=== PATIENT | female | born 1960 | race Caucasian/White ===

== ENCOUNTER 2019-05-25 16:39 | Outpatient (CLI) | payer BC, SELFPAY ==
--- NOTE | ~2019-05-25 | CT_ITS ---
EXAMINATION: CT lung screening DATE: 05/25/2019 17:07 INDICATION: PERS HX OF TOBACCO DEP TECHNIQUE: Computed tomography (CT) of the chest was performed without intravenous contrast utilizing a low-dose lung cancer screening protocol. Additional 3D reconstructions utilizing coronal maximum i ntensity projection (MIP) were performed. Automated exposure control and iterative reconstruction freddy hnique were employed. The dose-length product was 64.88 mGy-cm. COMPARISON: None FINDINGS: Mild to moderate emphysema. Mild linear discoid atelectasis/scarring in the bilateral lower lobes. 2- 3 mm nodule at the anterobasilar right lower lobe. No pneumonia, pulmonary edema or pleural effusion. Heart size is normal. No pericardial effusion. Thoracic aorta is normal in caliber. No pathologicall y enlarged thoracic lymphadenopathy. Bilateral breast implants./Upper abdomen is unremarkable. Mild t horacic spondylosis. IMPRESSION: 1. Lung-RADS category 2: Benign appearance or behavior. Continue annual screening with noncontrast lo w-dose chest CT in 12 months. 2. Mild to moderate emphysema. Reviewed, dictated and finalized at location A. N INSPECTOR IMPRESSION: 1. Lung-RADS category 2: Benign appearance or behavior. Continue annual screeni ng with noncontrast low-dose chest CT in 12 months. 2. Mild to moderate emphysema.
== END 2019-05-25 16:40 | disposition home or self-care (01) ==
LOC: ANHIMG 16:50
PROVIDERS: PCP Emergency Medicine; Visit Provider Emergency Medicine
DX: Z12.2 Encounter for screening for malignant neoplasm of respiratory organs (principal); Z87.891 Personal history of nicotine dependence; J43.9 Emphysema, unspecified
CPT/HCPCS: G0297

== ENCOUNTER → 2020-04-10 07:25 | Outpatient (CLI) | payer BC, SELFPAY ==
--- NOTE | ~2020-04-10 | MM_ITS ---
EXAMINATION: MM scrn ivon implant BI w brenden HISTORY: Screening mammogram TECHNIQUE: Craniocaudal and mediolateral oblique 3-D tomosynthesis images with implant displacement a nd synthetic 2-D images were generated. Craniocaudal and mediolateral oblique views of the breasts wi thout implant displacement were obtained using full field digital mammography. CAD analysis was submi tted and interpreted. COMPARISON: Comparison to multiple prior studies sequentially, with oldest reviewed study dated 11/09. BREAST PARENCHYMAL COMPOSITION: There are scattered areas of fibroglandular density. FINDINGS: There are bilateral subpectoral silicone implants. There is no evidence of suspicious mass, calcification, or architectural distortion to suggest malignancy in either breast. There has been no suspicious interval change. IMPRESSION: 1. No mammographic evidence of malignancy. 2. Recommend routine screening mammography in one year. BI-RADS Category 1: Negative Reviewed, dictated and finalized at location A. RINTENDENT QUARRY
== END ==
PROVIDERS: PCP Emergency Medicine; Visit Provider Obstetrics & Gynecology
DX: Z12.31 Encounter for screening mammogram for malignant neoplasm of breast (principal)
CPT/HCPCS: 77063; 77067

== ENCOUNTER 2020-07-16 11:12 | Outpatient (CLI) | payer BC, SELFPAY ==
--- NOTE | ~2020-07-16 | CT_ITS ---
EXAMINATION: CT lung screening DATE: 07/16/2020 11:41 INDICATION: PER Hx TOBACCO DEPENDENCE TECHNIQUE: Computed tomography (CT) of the chest was performed without intravenous contrast. Addition al 3D reconstructions utilizing coronal maximum intensity projection (MIP) were performed. Automated exposure control and iterative reconstruction technique were employed. The dose-length product was 62 .65 mGy-cm. COMPARISON: 05/25/2019 FINDINGS: Mild to moderate emphysema. Mild dependent and basilar atelectasis in the bilateral lower lobes. Agai n seen is a 2 mm nodules in the anterobasilar segment of the right lower lobe. No new or enlarging pu lmonary nodules identified. No pneumonia, pulmonary edema or pleural effusion. Heart size is normal. No pericardial effusion. Thoracic aorta is normal in caliber. No pathologically enlarged thoracic lym phadenopathy. Bilateral breast implants. Visualized upper abdomen is unremarkable. Mild thoracic spon dylosis. IMPRESSION: 1. Lung-RADS category 2: Benign appearance or behavior. Continue annual screening with noncontrast lo w-dose chest CT in 12 months. 2. Mild to moderate emphysema. Reviewed, dictated and finalized at location A. IMPRESSION: 1. Lung-RADS category 2: Benign appearance or behavior. Continue annual screeni ng with noncontrast low-dose chest CT in 12 months. 2. Mild to moderate emphysema.
== END 2020-07-16 11:13 | disposition home or self-care (01) ==
PROVIDERS: PCP Emergency Medicine; Visit Provider Emergency Medicine
DX: Z12.2 Encounter for screening for malignant neoplasm of respiratory organs (principal); Z87.891 Personal history of nicotine dependence
CPT/HCPCS: 71271

== ENCOUNTER → 2021-03-10 08:53 | Outpatient (CLI) | payer BC, SELFPAY ==
--- NOTE | ~2021-03-10 | MMUS_ITS ---
EXAMINATION: MM diag ivon implant BI w brenden, US breast RT limited HISTORY: Pain in the upper outer quadrant of the right breast TECHNIQUE: Craniocaudal, mediolateral, and mediolateral oblique 3-D tomosynthesis images with implant displacement of the breasts were performed and synthetic 2-D images were generated. Craniocaudal, m ediolateral oblique, and mediolateral views of the breasts without implant displacement were obtained using full field digital mammography. CAD analysis was submitted and interpreted. High resolution li Lovelogicad right breast ultrasound was performed. COMPARISON: 04/10/2020, 02/06/2019, 11/09/2017 BREAST PARENCHYMAL COMPOSITION: There are scattered areas of fibroglandular density. FINDINGS: MAMMOGRAPHIC FINDINGS: There is no evidence of suspicious mass, calcification, or architectural distortion in either breast to suggest malignancy. There has been no suspicious interval change. No mammographic correlate is id entified for the reported right breast pain. ULTRASOUND: There is no evidence of focal abnormal solid or cystic lesion in the vicinity of the patient's right breast pain. IMPRESSION: 1. No specific mammographic or sonographic correlate is identified for the patient's right breast jose manuel n Further evaluation at this time should be based on clinical assessment. Continued follow-up physica l examination is recommended. 2. Recommend routine screening mammography in one year. BI-RADS Category 1: Negative Reviewed, dictated and finalized at location A. AT INFORMATION CENTER OFFICER IMPRESSION: 1. No specific mammographic or sonographic correlate is identified for the celine ent's right breast pain Further evaluation at this time should be based on clin ical assessment. Continued follow-up physical examination is recommended. 2. Recommend routine screening mammography in one year. BI-RADS Category 1: Negative
== END ==
PROVIDERS: Visit Provider Obstetrics & Gynecology
DX: N64.4 Mastodynia (principal)
CPT/HCPCS: 76642; 77062; 77066; G0279

== ENCOUNTER 2023-02-26 08:12 | Emergency (ER) | payer BC, SELFPAY ==
[2023-02-26 08:28] VITALS: BP 94/51; PULSE 63; RESP 16; TEMP 37.4; O2SAT 97
--- NOTE | 2023-02-26 08:45 | ED.URI ---
HPI - URI/Sore Throat General Chief Complaint: Upper Respiratory Infection Stated Complaint: Cold symptoms Time Seen by Provider: 02/26/23 08:30 Source: patient, RN notes reviewed and old records reviewed Mode of arrival: ambulatory Limitations: no limitations History of Present Illness HPI Narrative: 62-year-old female who presents to [facility] with complaints of sore throat and left ear pain since with some dry cough noted. Patient has not taken any OTC medications for her symptoms. Patient reports that her ear pain kept her up most of the night. Patient reports no fevers, chills or sweats, states does feel achy. MD elicited complaint: cough, sore throat, rhinorrhea and other ( left ear pain) Onset (ago): day(s) (2) Pain scale (0-10): 5 Able to tolerate fluids by mouth: Yes Treatments prior to arrival: none Related Data Allergies Allergy/AdvReac Type Severity Reaction Status Date / Time No Known Allergies Allergy Unverified 02/26/23 08:26 Review of Systems Review of Systems: CONSTITUTIONAL: Denies malaise, chills, sweats, or fever. EYES: Denies visual changes, redness, or discharge. ENT: Reports rhinorrhea, congestion, sinus pain, otalgia and sore throat. CARDIOVASCULAR: Denies chest pain, palpitations, or edema. RESPIRATORY: Reports cough.? Denies dyspnea. GASTROINTESTINAL: Denies abdominal pain, nausea, vomiting, diarrhea SKIN: Denies rash or itching. MUSCULOSKELETAL: reports some myalgia. NEUROLOGIC: Denies headache. All systems reviewed & are unremarkable except as noted in HPI and below PMFSH Past Medical History Medical History (Updated 02/28/23 @ 09:57 by Kiki Cueva NP) HLD (hyperlipidemia) RLS (restless legs syndrome) Vitamin D deficiency disease Surgical History Surgical History (Updated 02/28/23 @ 09:54 by Kiki Cueva NP) H/O brain surgery Chanda malformation H/O breast augmentation History of tonsillectomy Previous section x2 S/P foot surgery, right Family History Family History Mother Patient's mother is in good health Social History Social History (Updated 02/28/23 @ 09:53 by Kiki Cueva NP) Smoking status: Former smoker Alcohol intake: current Alcohol use details: rare Substance use type: does not use Living arrangements: with family Gender identity (if verbalized by the patient): Female Comments At time of signature, agree with nursing past medical, surgical, social and family history. There is no relevant family history pertinent to the presenting complaint Exam Narrative: GENERAL: Well-appearing, well-nourished, and in no acute distress. HEAD: Normocephalic EYES: PERRLA, conjunctivae clear ENT: Nares clear, turbinates edematous and erythematous, clear discharge. Mucous membranes moist. TM pearly tolliver with dull light reflex bilaterally; no tragal tenderness. Oropharynx erythematous without lesions. Tonsils not present and without exudate, no drooling, no hoarseness, no trismus, uvula midline.some post nasal drainage NECK: Supple. No lymphadenopathy CHEST: Clear to auscultation, breath sounds equal. No wheezing, rhonchi, rales, or stridor. No respiratory distress, speaks in full sentences.cough,SAO2 97%on room air HEART: Regular rate and rhythm. No murmur heard. SKIN: Warm, dry, no rash. NEURO: Alert and oriented x3. PSYCH: Normal mood and affect Course Course Emergency Course: Patient is aware of diagnosis, understands and agrees to treatment plan.? Anticipatory guidance given.? Patient agrees to follow-up as directed and is aware of reasons to seek care at the emergency department. Portions of this record may have been created with voice recognition software Level of Care: Express Care Visit Vital Signs Vital signs: Vital Signs Temperature 37.4 C 02/26/23 08:28 Pulse Rate 63 02/26/23 08:28 Respiratory Rate
== END 2023-02-26 09:00 | disposition home or self-care (01) ==
PROVIDERS: Emergency Provider Registered Nurse; PCP Emergency Medicine
DX: J06.9 Acute upper respiratory infection, unspecified (principal); Z20.822 Contact with and (suspected) exposure to COVID-19; Z87.891 Personal history of nicotine dependence; E78.5 Hyperlipidemia, unspecified; G25.81 Restless legs syndrome
CPT/HCPCS: 87081; 87426; 87804; 87880; 99213; C9803; G0463

== ENCOUNTER 2023-11-02 08:18 | Outpatient (CLI) | payer BC, SELFPAY ==
--- NOTE | ~2023-11-02 | CT_ITS ---
EXAMINATION:CT lung screening DATE: 11/02/2023 08:36 INDICATION: Personal history of nicotine dependence. Smoker who quit 2 years ago with 38 pack year hi story. TECHNIQUE: Computed tomography (CT) of the chest was performed without intravenous contrast. Automate d exposure control and iterative reconstruction technique were employed. The dose-length product (DLP ) was 84.78 mGy-cm. COMPARISON: Chest CT 07/16/2020 FINDINGS: There is moderate emphysema. There is mild atelectasis bilaterally. No pleural effusion. Th e heart size is normal. No pericardial effusion. There are bilateral breast implants. There is mild t horacic spondylosis. IMPRESSION: 1. Lung-RADS category 1: Negative. Continue annual screening with noncontrast low-dose chest CT in 12 months. Reviewed, dictated and finalized at location A. IMPRESSION: 1. Lung-RADS category 1: Negative. Continue annual screening with noncontrast l ow-dose chest CT in 12 months.
== END 2023-11-02 08:19 ==
LOC: GOSHIMG 08:19
PROVIDERS: PCP Emergency Medicine; Visit Provider Emergency Medicine
DX: Z12.2 Encounter for screening for malignant neoplasm of respiratory organs (principal); Z87.891 Personal history of nicotine dependence
CPT/HCPCS: 71271

== ENCOUNTER 2024-04-27 09:32 | Outpatient (CLI) | payer BC, SELFPAY ==
--- OUTSIDE RECORDS SUMMARY | 2024-04-27 09:49 | XMS_ITS | CONTINUITY OF CARE DOCUMENT ---
Author Name telly varner Address Unknown Organization [facility] Address [address] [place] [address] Phone [phone] Care Team Providers Care Furniture Stainer Name Role Phone Kelechi Hylton MD Unavailable KELECHI HYLTON MD Unavailable PROBLEMS Condition Status Date Provider Notes BACK PAIN, ACUTE active Kelechi Hylton MD ENCOUNTERS Date Type Provider Location Encounter Diagnosis - In-person encounter Office Visit Kelechi Hylton MD [facility] BACK PAIN, ACUTE VITAL SIGNS Date Observation Value Provider Body Mass Index (Ratio) 35.52 kg/m2 Joey Gonzalez blood pressure, diastolic 74 mm[Hg] Francois blood pressure, systolic 136 mm[Hg] Deep Gonzalez pulse rate 80 /min Raquel Gonzalez oxygen saturation, oximetry 96 % Raquel Gonzalez respiratory rate E&M 16 /min Raquel Gonzalez weight E&M 126 [lb_av] Kelechi Hylton MD height E&M 67 [in_i] Raquel Gonzalez ALLERGIES No Known Drug Allergies RESULTS Date Observation Value Provider Reference Range Interpretation Location 1 thyroid stimulating hormone, serum 1.33 u[IU]/mL Akbar Edmond HISTORY OF MEDICATION USE No Known Medication SOCIAL HISTORY Date Observation Value Provider social history E&M Marital Status: Marbrigido d Kelechi Benitezum MD smoking/tobacco cess ation, patient education and counseling yes Kelechi Hylton MD social history reviewed E&M reviewed Kelechi Hylton MD alcohol counseling no Raquel mata In the past 3 months , have you been waking up wanting to use drugs? (CAGE substance use question #4) Justin Gonzalez In the past 3 months , have you felt guilty or bad about using drugs? (CAGE substance use question #3) Justin Gonzalez In the past 3 months , has anyone annoyed you by telling you to cut down or stop using drugs? (CAGE substance use question #2) Justin Gonzalez In the past 3 months , have you felt you should cut down or stop using drugs?(CAGE substance use question #1) Justin Gonzalez alcohol use, average drinks per day <1 Raquel Gonzalez alcohol use, type beer Raquel laureano drug use no Raquel Gonzalez passive cigarette smoke exposure yes Raquel Gonzalez smoking history, total pack/day 1 Raquel Gonzalez smoking history, total pack/year 32 Raquel Gonzalez cigarette use yes Raquel medrano smoking, date started 1982 Javier Gonzalez smoking status current some day smoker De isiah Gonzalez MENTAL STATUS Date Observation Value Provider assessment of judgme nt and insight E&M Alert and oriented to time, place and person. Mood and affect are normal. Kelechi Hylton MD INSURANCE PROVIDERS Payer name Policy type / Coverage type Milady varma democrat ID [id number] PPO [employer] Other [id number] HISTORY OF PROCEDURES Procedure Date Procedure Name Provider Procedure Notes S tatus EKG Kelechi Hylton MD completed
[2024-04-27 13:51] LABS: Alanine Aminotransferase 15 U/L (6-35); Albumin Level 4.5 g/dL (3.5-5.1); Alkaline Phosphatase 57 U/L (38-126); Anion Gap 7 mmol/L (4-12); Aspartate Amino Transferase 32 U/L (14-36); Bilirubin,Total 0.6 mg/dL (0.2-1.3); Blood Urea Nitrogen 13 mg/dL (7-17); Calcium 9.8 mg/dL (8.4-10.2); Carbon Dioxide 29 mmol/L (22-30); Chloride 106 mmol/L (98-107); Cholesterol 232 mg/dL (0-200); Estimated Glomerular Filt Rate > 60; Glucose 89 mg/dL (65-110); HDL Direct 73 mg/dL; Potassium 4.5 mmol/L (3.4-5.0); Sodium 142 mmol/L (137-145); Triglycerides 105 mg/dL (<150)
[2024-04-27 14:04] LABS: LDL Cholesterol Direct 135 mg/dL
== END 2024-04-27 09:33 | disposition home or self-care (01) ==
LOC: ANHGOSHLAB 09:33
PROVIDERS: PCP Emergency Medicine; Visit Provider Emergency Medicine
DX: E78.5 Hyperlipidemia, unspecified (principal); E55.9 Vitamin D deficiency, unspecified
CPT/HCPCS: 36415; 80053; 80061; 82306

== ENCOUNTER 2024-05-10 07:05 | Outpatient (CLI) | payer BC, SELFPAY ==
--- NOTE | ~2024-05-10 | MM_ITS ---
EXAMINATION: MM scrn ivon implant BI w brenden HISTORY: Screening mammogram TECHNIQUE: Craniocaudal and mediolateral oblique 3-D tomosynthesis images with implant displacement a nd synthetic 2-D images were generated. Craniocaudal and mediolateral oblique views of the breasts wi thout implant displacement were obtained using full field digital mammography. CAD analysis was submi tted and interpreted. COMPARISON: 11/09/2017 BREAST PARENCHYMAL COMPOSITION: Not dense: There are scattered areas of fibroglandular density. FINDINGS: There is no evidence of suspicious mass, calcification, or architectural distortion to sugg est malignancy in either breast. There has been no suspicious interval change. IMPRESSION: 1. No mammographic evidence of malignancy. 2. Recommend routine screening mammography in one year. BI-RADS Category 1: Negative Reviewed, dictated and finalized at location B. ING HOME DIRECTOR
== END 2024-05-10 07:06 | disposition home or self-care (01) ==
LOC: MICIMG 07:06
PROVIDERS: PCP Emergency Medicine; Visit Provider Emergency Medicine
DX: Z12.31 Encounter for screening mammogram for malignant neoplasm of breast (principal)
CPT/HCPCS: 77063; 77067

== ENCOUNTER 2025-01-03 01:31 | Day surgery (SDC) | payer BC, SELFPAY ==
[2024-12-20 14:05] VITALS: BMI 16.9
[2025-01-03 11:50] VITALS: BP 113/58; PULSE 75; RESP 20; TEMP 36.3; O2SAT 98
[2025-01-03] MEDS: LACTATED RINGERS 1,000 ML 150 ML IV CONT (12:03)
--- NOTE | 2025-01-03 12:03 | WPDANESEPPF ---
Anes - Initial Pre Proc Eval Procedure: Operation Date: 01/03/25 13:00 Proposed Procedures p Screening Colonoscopy - Joe Kohli MD Date/Time: 01/03/25 12:03 Surgeon: Joe Kohli MD Pre Op Diagnosis: screening Patient Data Age: 64 Gender: F Height: 1.71 m Weight: 50.7 kg Last Vital Signs Temp 36.3 C L 01/03/25 11:50 Pulse 75 01/03/25 11:50 Resp 20 01/03/25 11:50 BP 113/58 L 01/03/25 11:50 Pulse Ox 98 01/03/25 11:50 O2 Del Method Room Air 01/03/25 11:50 Allergies Allergy/AdvReac Type Severity Reaction Status Date / Time No Known Allergies Allergy Verified 01/03/25 11:49 Home Medications ?Medication ?Instructions ?Recorded ?Confirmed ?Type gabapentin 300 mg capsule See Rx Instructions .Route 05/02/24 01/03/25 Rx .COMPLEX #270 caps temazepam 15 mg capsule 15 mg PO QHS PRN sleep #90 caps 05/03/24 12/20/24 Rx cholecalciferol (vitamin D3) 50 50 mcg PO DAILY #90 caps 05/09/24 01/03/25 Rx mcg (2,000 unit) capsule Patient hx anesthesia problems: none Family hx anesthesia problems: none Results Review: All pre-operative results and documents have been reviewed as part of the pre-operative evaluation. [facility] Past Medical History Medical History HLD (hyperlipidemia) Chronic cough Fatigue Tobacco abuse Chronic cough Recurrent maxillary sinusitis Papanicolaou smear for cervical cancer screening Hyperinflation of lungs Changes in vision Bronchitis due to tobacco use Vitamin D deficiency disease RLS (restless legs syndrome) HLD (hyperlipidemia) Surgical History Surgical History S/P foot surgery, right H/O breast augmentation Previous section x2 History of tonsillectomy H/O brain surgery Chanda malformation Family History Family History Mother Patient's mother is in good health Social History Social History (Updated 05/09/24 @ 09:10 by Ada Aragon MA) Years smoked: 30 Smoking status: Former smoker Tobacco type: cigarettes Alcohol intake: current Alcohol use details: rare Substance use: never Substance use type: does not use Do You Feel Safe in your Home?: Yes Lack of Transportation: No Lack of Food: Never True Current Housing: I Have Housing Concerned About Future Housing: No Difficulty Paying Gas/Electric Bills: No Difficulty Paying for Meds: No Currently Unemployed: No Education: High School Diploma/GED Difficulty w/ Childcare or Family Care: No Living arrangements: with family Gender identity (if verbalized by the patient): Female Spiritual care concerns: No Anes - Eval Final PreProcedure Day of Procedure 01/03/25 12:03 Patient weight: normal Heart: regular rate and rhythm Lungs: clear to auscultation and normal air movement Airway: Mallampati scale class II Neurological: alert and oriented Last oral intake: >/= 8 hours ASA classification: II Emergent: no Anesthetic plan: proceed Anesthesia type and monitoring: general GIVS and standard monitoring Results Review: All pre-operative results and documents have been reviewed as part of the pre-operative evaluation. Informed Consent: The patient's anesthetic plan and its attendant risks and benefits were discussed with the patient/family/POA. Questions were solicited and answers provided to the satisfaction of the patient/family/POA.
[2025-01-03] MEDS: SIMETHICONE ORAL SUSPENSION 20 MG/0.3 ML 30 ML BOTTLE 0.6 ML IRRIGATION (12:44)
--- NOTE | 2025-01-03 12:54 | S_PTH ---
PATIENT: Julisa Gentile LOC: [facility] U#:[id number] AGE/SX: 64/F ROOM: RE01/03/[address]: Joe Kohli MD : 1960 BED: DIS: 01/03/2025 SPEC #: [id number] RECD: 01/03/25 13:39 STATUS: KATIE REQ #: [id number] DARIAN: 01/03/25 12:[address]: Joe Kohli DEPT: [facility] RECD BY: Libertad Garland ENTERED: 01/03/25 13:39 SP TYPE: Surgical OTHR DR: Omid Hollins MD Tissues: A - Colon Polypectomy Procedures: Hematoxylin and Eosin Stain Gross and Microscopic Level 4
--- NOTE | 2025-01-03 12:57 | P.HP_ITS ---
H&P: HPI History of Present Illness Date/Time: 01/03/25 12:57 Chief Complaint: Screening colonoscopy Narrative: This is the patient's second colonoscopy. There are no GI symptoms and there is no family history of colorectal cancer. Review of Systems Review of Systems: All systems reviewed & are unremarkable except as noted in HPI and below PMFSH Past Medical History Medical History HLD (hyperlipidemia) Chronic cough Fatigue Tobacco abuse Chronic cough Recurrent maxillary sinusitis Papanicolaou smear for cervical cancer screening Hyperinflation of lungs Changes in vision Bronchitis due to tobacco use Vitamin D deficiency disease RLS (restless legs syndrome) HLD (hyperlipidemia) Surgical History Surgical History S/P foot surgery, right H/O breast augmentation Previous section x2 History of tonsillectomy H/O brain surgery Chanda malformation Family History Family History Mother Patient's mother is in good health Social History Social History (Updated 05/09/24 @ 09:10 by Ada Aragon MA) Years smoked: 30 Smoking status: Former smoker Tobacco type: cigarettes Alcohol intake: current Alcohol use details: rare Substance use: never Substance use type: does not use Do You Feel Safe in your Home?: Yes Lack of Transportation: No Lack of Food: Never True Current Housing: I Have Housing Concerned About Future Housing: No Difficulty Paying Gas/Electric Bills: No Difficulty Paying for Meds: No Currently Unemployed: No Education: High School Diploma/GED Difficulty w/ Childcare or Family Care: No Living arrangements: with family Gender identity (if verbalized by the patient): Female Spiritual care concerns: No Meds Home Medications and Allergies Home Medications ?Medication ?Instructions ?Recorded ?Confirmed ?Type gabapentin 300 mg capsule See Rx Instructions .Route 0 05/02/24 01/03/25 Rx .COMPLEX #270 caps temazepam 15 mg capsule 15 mg PO QHS PRN sleep #90 c aps 05/03/24 12/20/24 Rx cholecalciferol (vitamin D3) 50 50 mcg PO DAILY #90 ca ps 05/09/24 01/03/25 Rx mcg (2,000 unit) capsule Allergies Allergy/AdvReac Type Severity Reaction Status Date / Time No Known Allergies Allergy Verified 01/03/25 11:49 Vital Signs Vital Signs - 24 hr 01/03/25 11:50 Temperature 97.4 F L Pulse Rate 75 Respiratory Rate 20 Blood Pressure 113/58 L Pulse Oximetry 98 Oxygen Delivery Room Air Exam Const: General: cooperative and healthy appearing Resp: Effort & Inspection: normal respiratory effort and able to speak in complete sentences Auscultation: clear to auscultation bilaterally Cardio: Rate: regular rate Rhythm: regular rhythm GI: Inspection: normal to inspection GI Palp: No No hepatosplenomegaly present Auscultation: normal bowel sounds Rectal Exam: deferred Skin: General skin exam: normal color Psych: Appearance: grossly normal Mental Status: mental status grossly normal Assessment and Plan Assessment and plan (1) Colon cancer screening: Code(s): Z12.11 - Encounter for screening for malignant neoplasm of colon Status: Acute Assessment and Plan: The patient is deemed a good candidate for the procedure. Consent signed. Will proceed.
[2025-01-03 12:59] VITALS: BP 141/76; PULSE 64; RESP 21; O2SAT 97
[2025-01-03 13:09] VITALS: BP 112/77; PULSE 68; RESP 19; O2SAT 99
[2025-01-03 13:19] VITALS: BP 119/86; PULSE 73; RESP 21; O2SAT 100
== END 2025-01-03 13:32 | disposition home or self-care (01) ==
PROVIDERS: PCP Emergency Medicine; Referring Provider Emergency Medicine; Visit Provider Internal Medicine Gastroenterology
PROC: 0DJD8ZZ Inspection of Lower Intestinal Tract, Via Natural or Artificial Opening Endoscopic (ICD-10-PCS; CPT 45378; principal; 2025-01-03 13:00)
DX: Z12.11 Encounter for screening for malignant neoplasm of colon (principal); D12.2 Benign neoplasm of ascending colon; K57.30 Diverticulosis of large intestine without perforation or abscess without bleeding; E78.5 Hyperlipidemia, unspecified; E55.9 Vitamin D deficiency, unspecified; G25.81 Restless legs syndrome; R05.3 Chronic cough; R53.83 Other fatigue; Z98.890 Other specified postprocedural states; Z87.891 Personal history of nicotine dependence
CPT/HCPCS: 45385; 88305; J2003; J2704; J7120